=== PATIENT | male | born 1950 | race Caucasian/White ===

== ENCOUNTER 2021-05-25 13:17 | Emergency (ER) | payer OTHER ==
[~2021-05-25] VITALS: Ht 175.3 cm; Wt 67.6 kg
--- NOTE | 2021-05-25 13:17 | NUR ---
Placed in room 06 . Placed on cco & president, blood pressure machine and pulse oximeter. To gown for exam. Side rails up.
--- NOTE | 2021-05-25 13:20 | NUR ---
EKG completed at bedside
--- NOTE | 2021-05-25 13:20 | NUR ---
20G PIV placed to Left Forearm
[2021-05-25 13:21] VITALS: BP_SYST 161
--- NOTE | 2021-05-25 13:21 | NUR ---
Labs drawn and sent to lab
--- NOTE | 2021-05-25 13:34 | NUR ---
Blood Sugar 163
--- NOTE | 2021-05-25 13:40 | NUR ---
Patient remains stable, denies pain at this time. Vitals stable
[2021-05-25] MEDS ORDERED: ASPIRIN 81 MG TAB.CHEW PO ONE (13:45)
[2021-05-25 13:48] LABS: BASOPHILS # (AUTO) 0.1 K/uL (0.0-0.2); BASOPHILS % (AUTO) 1.4 % (0.0-2.0); EOSINOPHILS # (AUTO) 0.2 K/uL (0.0-0.4); EOSINOPHILS % (AUTO) 2.3 % (0.0-4.0); HEMATOCRIT 38.3 % (36-54); HEMOGLOBIN 12.8 g/dL (14.0-18.0); LYMPHOCYTES % (AUTO) 25.2 % (20.5-51.5); MEAN CORPUSCULAR HEMOGLOBIN 28 pg (27-31); MEAN CORPUSCULAR HGB CONC 33 % (32-36); MEAN CORPUSCULAR VOLUME 85 fL (79.0-98.0); MONOCYTES # (AUTO) 0.7 K/uL (0.0-1.0); MONOCYTES % (AUTO) 8.5 % (1.7-9.3); NEUTROPHILS # (AUTO) 4.9 K/uL (1.8-7.7); NEUTROPHILS % (AUTO) 62.6 % (40.0-70.0); PLATELET COUNT (AUTO) 295 K/uL (130-430); RED BLOOD CELL COUNT(AUTO) 4.51 MIL/uL (4.2-6.2); RED CELL DISTRIBUTION WIDTH 13.6 % (9.0-15.0); WHITE BLOOD COUNT (AUTO) 7.9 K/uL (4.8-10.8)
[2021-05-25 14:07] LABS: ANION GAP 8 (5-15); CALCIUM 9.7 mg/dL (8.4-11.0); CHLORIDE 101 mmol/L (98-107); CREATININE 0.87 mg/dL (0.55-1.30); GLUCOSE 153 mg/dL (70-99); POTASSIUM 3.6 mmol/L (3.5-5.1); SODIUM SERUM 139 mmol/L (136-145); UREA NITROGEN, BLOOD 14 mg/dL (8-21)
[2021-05-25 14:09] LABS: GFR AFRICAN AMERICAN 112 mL/min (>90)
[2021-05-25 14:16] LABS: ALANINE AMINOTRANSFERASE 28 U/L (12-78); ALBUMIN 3.9 g/dL (3.4-4.8); ASPARTATE AMINOTRANSFERASE 23 U/L (10-37); TOTAL BILIRUBIN 1.1 mg/dL (0.0-1.0)
[2021-05-25] MEDS ORDERED: ASPIRIN 81 MG TAB.CHEW ONE (14:22)
--- NOTE | 2021-05-25 16:41 | NUR ---
Dinner tray offered
[2021-05-25 18:48] VITALS: BP_SYST 160
--- NOTE | 2021-05-25 18:49 | NUR ---
Patient given written and verbal discharge instructions and verbalizes understanding. ER MD discussed with patient the results and treatment provided. Patient in stable condition. ID arm band removed. IV catheter removed intact and dressing applied, no active bleeding. Rx of given. Patient educated on pain management and to follow up with PMD. Pain Scale 0/10 Opportunity for questions provided and answered. Medication side effect fact sheet provided.
== END 2021-05-25 18:48 | disposition home or self-care (01) ==
LOC: SED 13:17
DX: R07.89 Other chest pain (principal); I10 Essential (primary) hypertension; E11.9 Type 2 diabetes mellitus without complications
CPT/HCPCS: 36415; 71045; 80053; 83880; 84484; 85025; 93005; 99285